=== PATIENT | male | born 1960 | race Caucasian/White ===

== ENCOUNTER 2020-10-21 14:29 | Inpatient (IN) | payer OTHER ==
[2020-10-21 14:52] VITALS: BMI 23.8
[2020-10-21] MEDS ORDERED: MECLIZINE HCL 25 MG TABLET (FP) PO ONE (15:47)
[2020-10-21] MEDS ORDERED: MECLIZINE HCL 25 MG TABLET (FP) ONE (15:51)
[2020-10-21 16:36] LABS: BASO % 0.5 % (0-2.0); EOS % 0.6 % (0-4.5); HEMATOCRIT 46.8 % (35.4-49); HEMOGLOBIN 15.8 GM/dL (11.7-16.9); LYMPH % 28.4 % (8-40); MCH 31.6 pg (25.7-33.7); MCHC 33.8 g/dl (32.0-35.9); MEAN CELL VOLUME 93.5 fl (80-96); MEAN PLT VOLUME 9.1 fl (7.5-11.1); MONO % 7.4 % (3.8-10.2); NEUT % 63.1 % (42.8-82.8); PLATELET COUNT 198 K/MM3 (134-434); RDW 12.8 % (11.9-15.9); WHITE BLOOD COUNT 6.5 K/mm3 (4.0-10.0)
[2020-10-21 16:38] LABS: CALCIUM 9.2 mg/dL (8.5-10.1)
[2020-10-21 16:39] LABS: ALBUMIN 4.1 g/dl (3.4-5.0); BLOOD UREA NITROGEN 19.8 mg/dL (7-18)
[2020-10-21 16:44] LABS: BILIRUBIN,TOTAL 1.1 mg/dL (0.2-1); TOT PROT 7.5 g/dl (6.4-8.2)
[2020-10-21 16:47] LABS: CREATININE 1.1 mg/dL (0.55-1.3)
[2020-10-21] MEDS ORDERED: CLINDAMYCIN 600MG PREMIX IVPB 600 MG/50 ML BAG IVPB ONE ×2 (21:01→21:13)
[2020-10-22] MEDS ORDERED: MECLIZINE HCL 25 MG TABLET (FP) PO PRN (02:46)
[2020-10-22] MEDS ORDERED: AMOX TR/POT CLAV 875MG/125MG TABLETS (FP) ONE (07:40)
[2020-10-22] MEDS ORDERED: AMOX TR/POT CLAV 875MG/125MG TABLETS (FP) PO SCH (08:00)
[2020-10-22 08:51] LABS: HEMATOCRIT 46.9 % (35.4-49); MCH 31.8 pg (25.7-33.7); MCHC 34.1 g/dl (32.0-35.9); MEAN CELL VOLUME 93.2 fl (80-96); MEAN PLT VOLUME 8.7 fl (7.5-11.1); PLATELET COUNT 191 K/MM3 (134-434); RBC 5.03 M/mm3 (4.00-5.60); RDW 12.9 % (11.9-15.9); WHITE BLOOD COUNT 5.3 K/mm3 (4.0-10.0)
[2020-10-22 09:16] LABS: POTASSIUM 4.3 mmol/L (3.5-5.1)
[2020-10-22 09:21] LABS: BLOOD UREA NITROGEN 16.5 mg/dL (7-18); MAGNESIUM 2.1 mg/dL (1.8-2.4)
[2020-10-22 09:24] LABS: PHOSPHOROUS 3.2 mg/dL (2.5-4.9)
[2020-10-22] MEDS ORDERED: ENOXAPARIN NA (PORCINE) 40 MG/0.4 ML DISP.SYRIN SQ SCH (10:00)
[2020-10-22] MEDS ORDERED: ENOXAPARIN NA (PORCINE) 40 MG/0.4 ML DISP.SYRIN SQ ONE (10:56)
[2020-10-22 15:30] VITALS: TEMP 98.1
[2020-10-22 16:02] VITALS: BP 126/84; PULSE 77
== END 2020-10-22 16:30 | disposition home or self-care (01) | DRG 153 ==
LOC: JERFT 14:29 → JER 14:29 → JERBED 21:08 → OBSVTOIN 23:01
PROVIDERS: ADMIT Hospitalist; ATTEND Internal Medicine
DX: H70.91 Unspecified mastoiditis, right ear (principal); E78.5 Hyperlipidemia, unspecified; H66.90 Otitis media, unspecified, unspecified ear
CPT/HCPCS: 36415; 70450-TC; 70552-TC; 71046-TC-FY; 80048; 80053; 83735; 84100; 85025; 85027; 93005; 93010; 99285-25; A9579; C9803; G0378; U0003

== ENCOUNTER 2021-02-07 15:02 | Emergency (ER) | payer OTHER ==
[2021-02-07 15:15] VITALS: BMI 26.6
[2021-02-07] MEDS ORDERED: ONDANSETRON 4 MG/2 ML VIAL IVPUSH ONE (15:57)
[2021-02-07] MEDS ORDERED: ONDANSETRON 4 MG/2 ML VIAL ONE (16:08)
[2021-02-07 17:10] LABS: BASO % 0.4 % (0-2.0); EOS % 0.2 % (0-4.5); HEMATOCRIT 42.6 % (35.4-49); HEMOGLOBIN 14.5 GM/dL (11.7-16.9); LYMPH % 13.3 % (8-40); MEAN CELL VOLUME 93.9 fl (80-96); MEAN PLT VOLUME 8.8 fl (7.5-11.1); MONO % 4.6 % (3.8-10.2); NEUT % 81.5 % (42.8-82.8); PLATELET COUNT 192 K/MM3 (134-434); RBC 4.54 M/mm3 (4.00-5.60); RDW 13.1 % (11.9-15.9); WHITE BLOOD COUNT 8.9 K/mm3 (4.0-10.0)
[2021-02-07 17:23] LABS: CHLORIDE 104 mmol/L (98-107); SODIUM 140 mmol/L (136-145)
[2021-02-07 17:28] LABS: ANION GAP 6 MMOL/L (8-16); CALCIUM 8.5 mg/dL (8.5-10.1); CO2 30 mmol/L (21-32); GLUCOSE,RANDOM 97 mg/dL (74-106)
[2021-02-07 17:29] LABS: LIPASE 88 U/L (73-393)
[2021-02-07 17:31] LABS: SGOT/AST 18 U/L (15-37); SGPT/ALT 23 U/L (13-61)
[2021-02-07 17:32] LABS: CREATININE 1.1 mg/dL (0.55-1.3)
[2021-02-07 17:33] LABS: BILIRUBIN,TOTAL 0.6 mg/dL (0.2-1); TOT PROT 7.1 g/dl (6.4-8.2)
[2021-02-07 17:34] LABS: ALK PHOS 42 U/L (45-117)
[2021-02-07 18:25] VITALS: BP 133/78; PULSE 86; TEMP 98.5
== END 2021-02-07 18:26 | disposition home or self-care (01) ==
LOC: JER 15:02
PROC: 3E033NZ Introduction of Analgesics, Hypnotics, Sedatives into Peripheral Vein, Percutaneous Approach (ICD-10-PCS; principal; 2021-02-07)
DX: R42 Dizziness and giddiness (principal); R11.2 Nausea with vomiting, unspecified
CPT/HCPCS: 36415; 71046-TC-FY; 80053; 83690; 84484; 85025; 93005; 93010; 99284-25